=== PATIENT | male | born 1955 | race Caucasian/White ===

== ENCOUNTER 2021-05-16 10:58 | Emergency (ER) | payer OTHER, MEDICARE, BC, SELFPAY ==
[2021-05-16 12:00] VITALS: BP 172/82; PULSE 68; RESP 16; TEMP 36.7; O2SAT 99; BMI 29.9
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
[2021-05-16 14:27] VITALS: BP 172/82; PULSE 68; RESP 16; TEMP 36.7; O2SAT 99
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
== END 2021-05-16 14:39 | disposition home or self-care (01) ==
PROVIDERS: Emergency Provider Nurse Practitioner Family
DX: S16.1XXA Strain of muscle, fascia and tendon at neck level, initial encounter (principal); V43.02XA Car driver injured in collision with other type car in nontraffic accident, initial encounter; Y92.414 Local residential or business street as the place of occurrence of the external cause
CPT/HCPCS: 72050; 73130; 99202; G0463

== ENCOUNTER 2021-05-30 08:57 | Emergency (ER) | payer MEDICARE, BC, SELFPAY ==
[2021-05-30 09:00] VITALS: BP 140/73; PULSE 87; RESP 19; TEMP 36.9; O2SAT 98; BMI 29.9
--- NOTE | 2021-05-30 09:19 | HMH.EDUTC ---
[facility] [place] Disposition Clinical Impression: Sinusitis Qualifiers: Sinusitis location: unspecified location Chronicity: unspecified Qualified Code(s): J32.9 - Chronic sinusitis, unspecified Disposition: Condition on Discharge: Good Instructions: Sinusitis, DI for Sinusitis, Prednisone, DI for COVID-19 (Suspected or Confirmed ) Additional Instructions: *Monitor Temp, Over the counter Motrin or Tylenol as directed/as needed Tylenol every 4 hours and Motrin every 6 hours (as long as your family doctor has told you that you can take it) for fever or pain. and straight to ER if unable to lower temp less than 101.0 after medication given *Warm salt water gargles may help to soothe the throat *Throat Lozenges *Warm fluids like tea with honey may help to soothe the throat *Sleep elevated *Humidifier/Vaporizer Take medication as prescribed Follow up IMMEDIATELY for new or worsening symptoms or no Noticeable improvement over the next 48-72 hours. 911 for difficulty breathing or swallowing You were tested for today for COVID19 your test result should be back in the next 24-48 hours, you may check your results on the [facility] My health portal if you have trouble logging on or seeing your results you may call You was given a handout with instructions for Self Quarantine and Self isolation for while you wait on test results and what to do if they are positive If you are positive the Health Dept will be contacting you also Make sure to take your Vitamins Vit. C Vit D and Zinc if you can take them Prescriptions: Amoxicillin/Potassium Clav [Augmentin 875-125 Tablet] 1 tab PO Q12H 7 Days #14 tab Transmission Status: Pending to [facility] Benzonatate [Benzonatate 100mg cap] 100 mg PO TID PRN #30 cap PRN Reason: Cough Transmission Status: Pending to [facility] predniSONE [Prednisone 20mg Tab] 20 mg PO BID 5 Days #10 tab Transmission Status: Pending to [facility] Referrals: Provider,Referral, [Primary Care Provider] - As needed Time of Disposition: 09:28 Medical Decision Making - Florencio Inquiry Pt receiving controlled substance: No Florencio was queried for this patient: No Vital Signs: 05/30/21 09:00 Temperature 98.5 F Temperature Source Oral Pulse Rate [Right Brachial] 87 Respiratory Rate 19 Blood Pressure [Right Arm] 140/73 Blood Pressure Mean [Right Arm] 95 Blood Pressure Source [Right Arm] Automatic Cuff Blood Pressure Position [Right Arm] Sitting 02 Sat by Pulse Oximetry 98 Oxygen Delivery Method Room Air [facility] [place] HPI - General Stated complaint: sore throat, cough, runny nose Time Seen by Provider: 05/30/21 09:19 Mode of Arrival: Ambulatory Source of Information: Patient, Parent(s) Limitations: No Limitations Description of Symptoms (Recalled from Triage Doc. by RN): PATIENT C/O HEAD AND CHEST CONGESTION AND COUGH X 5 DAYS HEENT Symptoms (Recalled from RN notes): Yes Resp Symptoms (Recalled from RN notes): Yes Skin Symptoms (Recalled from RN notes): No MS Symptoms (Recalled from RN notes): No Functional Status (Recalled from RN notes): WNL - History of Present Illness Provider Complaint: Patient states that he has been having sinus issues for over a week States that for the last 5 days it has got worse States that he feels like it is trying to move into his chest area States that he was wanting to get checked and he will be going to see a new baby on and wanted to get tested for COVID too to make sure he doesnt have anything to be around the baby - Related Data Previous Rx's Medication Instructions Recorded Amoxicillin/Potassium Clav 1 tab PO Q12H 7 Days #14 tab 05/30/21 [Augmentin 875-125 Tablet] Benzonatate [Benzonatate 100mg 100 mg PO TID PRN #30 cap 05/30/21 cap] predniSONE [Prednisone 20mg 20 mg PO BID 5 Days #10 tab 05/30/21 Tab] Allergies Allergy/AdvReac Type Severity Reaction Status Date / Time codeine Allergy Verified 05/30/21
[2021-05-30 09:33] VITALS: BP 140/73; PULSE 87; RESP 19; TEMP 36.9; O2SAT 98
== END 2021-05-30 09:38 | disposition home or self-care (01) ==
PROVIDERS: Emergency Provider Nurse Practitioner
DX: J32.9 Chronic sinusitis, unspecified (principal); Z20.822 Contact with and (suspected) exposure to COVID-19
CPT/HCPCS: G0463; 99202; C9803; U0003; U0005

== ENCOUNTER 2021-06-06 09:03 | Emergency (ER) | payer MEDICARE, BC, SELFPAY ==
[2021-06-06 09:25] VITALS: BP 103/82; PULSE 75; RESP 14; TEMP 36.5; O2SAT 96; BMI 29.9
--- NOTE | 2021-06-06 09:32 | HMH.EDUTC ---
[facility] [place] Disposition Clinical Impression: Sinusitis Qualifiers: Sinusitis location: unspecified location Chronicity: unspecified Qualified Code(s): J32.9 - Chronic sinusitis, unspecified Disposition: Home, Self-Care Condition on Discharge: Good Instructions: Sinusitis, DI for Sinusitis, Azithromycin Additional Instructions: *Monitor Temp, Over the counter Motrin or Tylenol as directed/as needed Tylenol every 4 hours and Motrin every 6 hours (as long as your family doctor has told you that you can take it) for fever or pain. and straight to ER if unable to lower temp less than 101.0 after medication given *Warm salt water gargles may help to soothe the throat *Throat Lozenges *Warm fluids like tea with honey may help to soothe the throat *Sleep elevated *Humidifier/Vaporizer *Flonase 2 sprays in each nostril daily but be aware that it may take 2-3 days before you notice improvement Take medication as prescribed Follow up IMMEDIATELY for new or worsening symptoms or no Noticeable improvement over the next 48-72 hours. 911 for difficulty breathing or swallowing Prescriptions: Fluticasone Propionate [Flonase 50mcg nasal spray 16gm] 1 spr NS DAILY #1 each Transmission Status: Received by [facility] guaiFENesin [Mucinex 600mg tablet] 1 - 2 tab PO Q12H #20 tab Transmission Status: Received by [facility] Azithromycin [Z-Gómez 250mg Tab] 250 mg PO DIRECTED #6 tab Transmission Status: Received by [facility] Referrals: Araseli Li [Primary Care Provider] - As needed Time of Disposition: 10:04 Medical Decision Making - Florencio Inquiry Pt receiving controlled substance: No Florencio was queried for this patient: No Vital Signs: 06/06/21 09:25 06/06/21 10:26 Temperature 97.7 F 97.7 F Temperature Source Oral Pulse Rate 75 Pulse Rate [Left] 75 Respiratory Rate 14 14 Blood Pressure 103/82 L Blood Pressure [Right Arm] 103/82 L Blood Pressure Mean [Right Arm] 89 02 Sat by Pulse Oximetry 96 Orders (Tests/Meds): ED MEDICATIONS Discontinued Medications Generic Name Dose Route Start Last Admin Trade Name Freq PRN Reason Stop Dose Admin Ceftriaxone Sodium 1 gm 06/06/21 09:42 06/06/21 10:05 Ceftriaxone 1gm Vial IM 06/06/21 09:43 1 gm ONCE ONE Administration Lidocaine HCl 0 ml 06/06/21 09:42 06/06/21 10:05 Lidocaine 1% 5ml Pf Vial IM 06/06/21 09:43 2.5 ml ONCE ONE Administration [facility] [place] HPI - General Stated complaint: cough Time Seen by Provider: 06/06/21 09:32 Mode of Arrival: Ambulatory Source of Information: Patient Limitations: No Limitations Description of Symptoms (Recalled from Triage Doc. by RN): pt c/o sinus congestion with clear mucous. pt was seen here 05/30 and dx with a sinus infection. pt was put on augmentin. pt states it helped some but he is still feeling bad. HEENT Symptoms (Recalled from RN notes): Yes (sinus congestion and clear drainage) Resp Symptoms (Recalled from RN notes): No Skin Symptoms (Recalled from RN notes): No MS Symptoms (Recalled from RN notes): No Functional Status (Recalled from RN notes): na - History of Present Illness Provider Complaint: Patient states that he has been having sinus problems for several weeks States that he started out with clear mucous about 3-4 weeks ago with cough, then pressure in his sinuses got worse and he came in State that he has been on Augmentin and it was clearing them up but now the pressure is back and feels like it is moving into his chest - Related Data Previous Rx's Medication Instructions Recorded Amoxicillin/Potassium Clav 1 tab PO Q12H 7 Days #14 tab 05/30/21 [Augmentin 875-125 Tablet] Benzonatate [Benzonatate 100mg 100 mg PO TID PRN #30 cap 05/30/21 cap] predniSONE [Prednisone 20mg 20 mg PO BID 5 Days #10 tab 05/30/21 Tab] Azithromycin [Z-Gómez 250mg Tab] 250 mg PO DIRECTED #6 tab 06/06/21 Fluticasone Propionate [Flonase 1 spr NS DAILY #1 each 1
[2021-06-06 10:26] VITALS: BP 103/82; PULSE 75; RESP 14; TEMP 36.5
== END 2021-06-06 10:27 | disposition home or self-care (01) ==
PROVIDERS: Emergency Provider Nurse Practitioner; PCP Internal Medicine
DX: J32.9 Chronic sinusitis, unspecified (principal); J02.9 Acute pharyngitis, unspecified
CPT/HCPCS: G0463; 99202

== ENCOUNTER 2021-10-12 09:05 | Emergency (ER) | payer MEDICARE, BC, SELFPAY ==
[2021-10-12 09:25] VITALS: BP 175/76; PULSE 73; RESP 16; TEMP 36.8; O2SAT 98; BMI 29.9
--- NOTE | 2021-10-12 09:37 | HMH.EDUTC ---
[facility] [place] Impression: Sinusitis Qualifiers: Sinusitis location: unspecified location Chronicity: unspecified Qualified Code(s): J32.9 - Chronic sinusitis, unspecified Disposition: Home, Self-Care Condition on Discharge: Good Instructions: Sinusitis, DI for Sinusitis Additional Instructions: *Monitor Temp, Over the counter Motrin or Tylenol as directed/as needed Tylenol every 4 hours and Motrin every 6 hours (as long as your family doctor has told you that you can take it) for fever or pain. and straight to ER if unable to lower temp less than 101.0 after medication given *Warm salt water gargles may help to soothe the throat *Throat Lozenges *Warm fluids like tea with honey may help to soothe the throat *Sleep elevated *Humidifier/Vaporizer Take medication as prescribed Follow up Follow up IMMEDIATELY for new or worsening symptoms or no Noticeable improvement over the next 48-72 hours. 911 for difficulty breathing or swallowing Prescriptions: Benzonatate [Benzonatate 100mg cap] 100 mg PO Q8HP PRN #30 cap PRN Reason: Cough Transmission Status: Received by [facility] predniSONE [Prednisone 20mg Tab] 20 mg PO BID #10 tab Transmission Status: Received by [facility] Azithromycin [Z-Gómez 250mg Tab] 250 mg PO DIRECTED #6 tab Transmission Status: Received by [facility] Referrals: Provider,Referral, [Primary Care Provider] - As needed Time of Disposition: 09:55 Medical Decision Making - Florencio Inquiry Pt receiving controlled substance: No Florencio was queried for this patient: No Vital Signs: 10/12/21 09:25 10/12/21 09:59 Temperature 98.2 F 98.2 F Temperature Source Oral Pulse Rate 73 Pulse Rate [Left] 73 Respiratory Rate 16 16 Blood Pressure 175/76 H Blood Pressure [Right Arm] 175/76 H Blood Pressure Mean [Right Arm] 109 02 Sat by Pulse Oximetry 98 Medical Decision Narrative: Discussed with patient about medications on his external medications and patient reports those are not his medications will contact pharmacy to see what can be done to get them removed [facility] [place] - General Stated complaint: congestion, sore throat, cough Time Seen by Provider: 03/23/22 09:37 Mode of Arrival: Ambulatory Source of Information: Patient Limitations: No Limitations Description of Symptoms (Recalled from Triage Doc. by RN): pt c/o sinus pressure, yellow nasal drainage and a nonproductive cough x2 wks. HEENT Symptoms (Recalled from RN notes): Yes Resp Symptoms (Recalled from RN notes): No Skin Symptoms (Recalled from RN notes): No MS Symptoms (Recalled from RN notes): No Functional Status (Recalled from RN notes): wnl - History of Present Illness Provider Complaint: Patient states that he has been having sinus pain and pressure along with cough for about 2 weeks States that it has continued to get worse and he has tried OTC medication - Related Data Previous Rx's Medication Instructions Recorded Amoxicillin/Potassium Clav 1 tab PO Q12H 7 Days #14 tab 05/30/21 [Augmentin 875-125 Tablet] Benzonatate [Benzonatate 100mg 100 mg PO TID PRN #30 cap 05/30/21 cap] predniSONE [Prednisone 20mg 20 mg PO BID 5 Days #10 tab 05/30/21 Tab] Azithromycin [Z-Gómez 250mg Tab] 250 mg PO DIRECTED #6 tab 06/06/21 Fluticasone Propionate [Flonase 1 spr NS DAILY #1 each 06/06/21 50mcg nasal spray 16gm] guaiFENesin [Mucinex 600mg tablet] 1 - 2 tab PO Q12H #20 tab 06/06/21 Azithromycin [Z-Gómez 250mg Tab] 250 mg PO DIRECTED #6 tab 10/12/21 Benzonatate [Benzonatate 100mg 100 mg PO Q8HP PRN #30 cap 10/12/21 cap] predniSONE [Prednisone 20mg 20 mg PO BID #10 tab 10/12/21 Tab] Allergies Allergy/AdvReac Type Severity Reaction Status Date / Time codeine Allergy Verified 05/30/21 09:19 - Worker's Comp Is this a Worker's Comp case?: No [facility] History - Hepatitis A Screen Drug use history?: No High risk sexual behaviors
[2021-10-12 09:59] VITALS: BP 175/76; PULSE 73; RESP 16; TEMP 36.8
== END 2021-10-12 10:05 | disposition home or self-care (01) ==
PROVIDERS: Emergency Provider Nurse Practitioner
DX: J32.9 Chronic sinusitis, unspecified (principal)
CPT/HCPCS: G0463; 99212

== ENCOUNTER 2021-10-18 08:59 | Emergency (ER) | payer MEDICARE, BC, SELFPAY ==
[2021-10-18 09:14] VITALS: BP 141/91; PULSE 85; RESP 17; TEMP 36.8; O2SAT 97; BMI 29.9
--- NOTE | 2021-10-18 09:22 | HMH.EDUTC ---
[facility] [place] Disposition Clinical Impression: Sinusitis Qualifiers: Sinusitis location: unspecified location Chronicity: unspecified Qualified Code(s): J32.9 - Chronic sinusitis, unspecified Disposition: Home, Self-Care Condition on Discharge: Good Instructions: Sinusitis, DI for Sinusitis, Doxycycline Additional Instructions: Take medication as prescribed Follow up with your Family Doctor if no improvement or any worsening of symptoms Make sure to drink plenty of water with this medication Return if needed Straight to ER if any life threatening symptoms Prescriptions: Doxycycline Monohydrate [Doxycycline [place] 100mg Tab] 100 mg PO BID 10 Days #20 tab Transmission Status: Received by [facility] Fluticasone Propionate [Flonase 50mcg nasal spray 16gm] 1 spr NS DAILY #1 each Transmission Status: Received by [facility] guaiFENesin [Mucinex 600mg tablet] 1 tab PO Q12 PRN #20 tab PRN Reason: Congestion Transmission Status: Received by [facility] Referrals: Provider,Referral, MD [Primary Care Provider] - As needed Time of Disposition: 09:31 Medical Decision Making - Florencio Inquiry Pt receiving controlled substance: No Florencio was queried for this patient: No Vital Signs: 10/18/21 09:14 10/18/21 09:38 Temperature 98.2 F 98.2 F Temperature Source Oral Pulse Rate 85 Pulse Rate [Left] 85 Respiratory Rate 17 17 Blood Pressure 141/91 H Blood Pressure [Right Arm] 141/91 H Blood Pressure Mean [Right Arm] 107 02 Sat by Pulse Oximetry 97 Orders (Tests/Meds): ED MEDICATIONS Discontinued Medications Generic Name Dose Route Start Last Admin Trade Name Freq PRN Reason Stop Dose Admin Ceftriaxone Sodium 1 gm 10/18/21 09:22 10/18/21 09:35 Ceftriaxone 1gm Vial IM 10/18/21 09:23 1 gm ONCE ONE Administration Lidocaine HCl 0 ml 10/18/21 09:22 10/18/21 09:35 Lidocaine 1% 5ml Pf Vial IM 10/18/21 09:23 2 ml ONCE ONE Administration [facility] [place] HPI - General Stated complaint: congestion Time Seen by Provider: 10/18/21 09:22 Mode of Arrival: Ambulatory Source of Information: Patient Limitations: No Limitations Description of Symptoms (Recalled from Triage Doc. by RN): pt c/o sinus congestion. pt was treated 1wk ago for a sinus infection and is not feeling any better. HEENT Symptoms (Recalled from RN notes): Yes Resp Symptoms (Recalled from RN notes): No Skin Symptoms (Recalled from RN notes): No MS Symptoms (Recalled from RN notes): No Functional Status (Recalled from RN notes): wnl - History of Present Illness Provider Complaint: Patient states that he started with sinus infection about a week or so ago and he was on a zpack and doesnt feel like it is any better State that he is having pressure behind his eyes and thick yellowish green mucous States that today he came back in because last time he had to get a shot and change meds to help clear it up - Related Data Previous Rx's Medication Instructions Recorded Amoxicillin/Potassium Clav 1 tab PO Q12H 7 Days #14 tab 05/30/21 [Augmentin 875-125 Tablet] Benzonatate [Benzonatate 100mg 100 mg PO TID PRN #30 cap 05/30/21 cap] predniSONE [Prednisone 20mg 20 mg PO BID 5 Days #10 tab 05/30/21 Tab] Azithromycin [Z-Gómez 250mg Tab] 250 mg PO DIRECTED #6 tab 06/06/21 Fluticasone Propionate [Flonase 1 spr NS DAILY #1 each 06/06/21 50mcg nasal spray 16gm] guaiFENesin [Mucinex 600mg tablet] 1 - 2 tab PO Q12H #20 tab 06/06/21 Azithromycin [Z-Gómez 250mg Tab] 250 mg PO DIRECTED #6 tab 10/12/21 Benzonatate [Benzonatate 100mg 100 mg PO Q8HP PRN #30 cap 10/12/21 cap] predniSONE [Prednisone 20mg 20 mg PO BID #10 tab 10/12/21 Tab] Doxycycline Monohydrate 100 mg PO BID 10 Days #20 tab 10/18/21 [Doxycycline Lagrange 100mg Tab] Fluticasone Propionate [Flonase 1 spr NS DAILY #1 each 10/18/21 50mcg nasal spray 16gm] guaiFENesin [Mucinex 600mg tablet] 1 tab PO Q12 PRN #20 tab 10/18/21
[2021-10-18 09:38] VITALS: BP 141/91; PULSE 85; RESP 17; TEMP 36.8
== END 2021-10-18 09:42 | disposition home or self-care (01) ==
PROVIDERS: Emergency Provider Nurse Practitioner
DX: J32.9 Chronic sinusitis, unspecified (principal)
CPT/HCPCS: 96372; 99213; G0463; J0696

== ENCOUNTER 2022-07-05 07:59 | Emergency (ER) | payer MEDICARE, BC, SELFPAY ==
--- NOTE | 2022-07-05 08:38 | EXP.UTC ---
Discharge Plan Disposition Patient Disposition: Home, Self-Care Condition: Good Prescriptions Prescriptions: No Action prednisone 20 MG tablet 20 mg PO BID 5 Days Qty: 10 0RF benzonatate 100 MG capsule 100 mg PO TID PRN (Reason: Cough) Qty: 30 0RF amoxicillin-pot clavulanate 1 EACH tablet 1 tab PO Q12H 7 Days Qty: 14 0RF azithromycin 250 MG tablet 250 mg PO DIRECTED Qty: 6 0RF Rx Instructions: Take two (2) tablets on day #1, then one (1) tablet day #2 thru #5 fluticasone propionate 120 SPR/BOT bottle 1 spr NS DAILY Qty: 1 0RF Rx Instructions: one spray each nostril daily guaifenesin 600 MG tablet extended release 12hr 1 - 2 tab PO Q12H Qty: 20 0RF azithromycin 250 MG tablet 250 mg PO DIRECTED Qty: 6 0RF Rx Instructions: Take two (2) tablets on day #1, then one (1) tablet day #2 thru #5 prednisone 20 MG tablet 20 mg PO BID Qty: 10 0RF benzonatate 100 MG capsule 100 mg PO Q8HP PRN (Reason: Cough) Qty: 30 0RF doxycycline monohydrate 100 MG tablet 100 mg PO BID 10 Days Qty: 20 0RF fluticasone propionate 120 SPR/BOT bottle 1 spr NS DAILY Qty: 1 0RF Rx Instructions: one spray in each nostril daily guaifenesin 600 MG tablet extended release 12hr 1 tab PO Q12 PRN (Reason: Congestion) Qty: 20 0RF Referrals Follow up/Referrals: Araseli Li [Primary Care Provider] - See instructions Activity Restrictions/Add. Instructions Additional Instructions/Restrictions: Drink plenty of fluids. Take tylenol or ibuprofen for pain or fever. Take the medications as directed. Follow up with your regular doctor. GO TO THE ER FOR ANY WORSENING SYMPTOMS Clinical Impressions Clinical Impression: Sinusitis Instructions Patient Instructions: DI for Sinusitis, Sinusitis, Dexamethasone Injection, Ceftriaxone Injection Discharge ED Provider: Laron Matute [facility] General Stated complaint: chest congestion, runny nose Time Seen by Provider: 07/05/22 08:38 History of Present Illness Provider Complaint: He states that for the past 2 weeks he has had sinus and chest congestion. Related Data Previous Rx's Medication Instructions Recorded amoxicillin 875 mg-potassium 1 tab PO Q12H 7 days #14 tabs 05/30/21 clavulanate 125 mg tablet benzonatate 100 mg capsule 100 mg PO TID PRN Cough #30 caps 05/30/21 prednisone 20 mg tablet 20 mg PO BID 5 days #10 tabs 05/30/21 azithromycin 250 mg tablet 250 mg PO DIRECTED #6 tabs 06/06/21 fluticasone propionate 50 1 spr NS DAILY #1 ea 06/06/21 mcg/actuation nasal spray,suspension guaifenesin 600 mg tablet, 1 - 2 tab PO Q12H Congestion/chest 06/06/21 extended release 12 hr congesti #20 tabs azithromycin 250 mg tablet 250 mg PO DIRECTED #6 tabs 10/12/21 benzonatate 100 mg capsule 100 mg PO Q8HP PRN Cough #30 caps 10/12/21 prednisone 20 mg tablet 20 mg PO BID #10 tabs 10/12/21 doxycycline monohydrate 100 mg 100 mg PO BID 10 days #20 tabs 10/18/21 tablet fluticasone propionate 50 1 spr NS DAILY #1 ea 10/18/21 mcg/actuation nasal spray,suspension guaifenesin 600 mg tablet, 1 tab PO Q12 PRN Congestion #20 10/18/21 extended release 12 hr tabs Allergies Allergy/AdvReac Type Severity Reaction Status Date / Time codeine Allergy Verified 07/05/22 08:51 [facility] Disclaimer: The information contained in this section may have been updated after the patient was seen, as this information can be updated by other users. Social History Smoking Status: Former smoker alcohol intake: never current occupational status: other Travel in the last 8 weeks: None ROS Obtained: Yes All systems reviewed & no additional complaints except as documented Constitutional Constitutional: Denies chills and Denies fever(s) Integumentary/Breasts Skin/Breast: Denies redness, Denies rash and Denies wounds Neurologic Neurologic: Ovidio
[2022-07-05 08:48] VITALS: BP 127/76; PULSE 73; RESP 17; TEMP 37.1; O2SAT 99; BMI 26.6
[2022-07-05 09:27] VITALS: BP 127/76; PULSE 73; RESP 17; TEMP 37.1
== END 2022-07-05 09:32 | disposition home or self-care (01) ==
PROVIDERS: Emergency Provider Nurse Practitioner Family; PCP Internal Medicine
DX: J32.9 Chronic sinusitis, unspecified (principal)
CPT/HCPCS: 96372; 99212; G0463; J0696

== ENCOUNTER 2022-07-18 07:59 | Emergency (ER) | payer MEDICARE, BC, SELFPAY ==
[2022-07-18 08:20] VITALS: BP 158/96; PULSE 73; RESP 16; TEMP 36.8; O2SAT 97; BMI 29.9
--- NOTE | 2022-07-18 08:37 | EXP.UTC ---
Discharge Plan Disposition Patient Disposition: Home, Self-Care Condition: Good Prescriptions Prescriptions: New amoxicillin-pot clavulanate 875-125 mg Tablet 1 tab PO Q12H Qty: 20 0RF benzonatate [benzonatate] 100 mg capsule 100 mg PO TIDP PRN (Reason: Cough) Qty: 30 0RF methylprednisolone 4 mg Tablets,Dose Pack 4 mg PO DIRECTED Qty: 21 0RF No Action prednisone 20 MG tablet 20 mg PO BID 5 Days Qty: 10 0RF benzonatate 100 MG capsule 100 mg PO TID PRN (Reason: Cough) Qty: 30 0RF amoxicillin-pot clavulanate 1 EACH tablet 1 tab PO Q12H 7 Days Qty: 14 0RF azithromycin 250 MG tablet 250 mg PO DIRECTED Qty: 6 0RF Rx Instructions: Take two (2) tablets on day #1, then one (1) tablet day #2 thru #5 fluticasone propionate 120 SPR/BOT bottle 1 spr NS DAILY Qty: 1 0RF Rx Instructions: one spray each nostril daily guaifenesin 600 MG tablet extended release 12hr 1 - 2 tab PO Q12H Qty: 20 0RF azithromycin 250 MG tablet 250 mg PO DIRECTED Qty: 6 0RF Rx Instructions: Take two (2) tablets on day #1, then one (1) tablet day #2 thru #5 prednisone 20 MG tablet 20 mg PO BID Qty: 10 0RF benzonatate 100 MG capsule 100 mg PO Q8HP PRN (Reason: Cough) Qty: 30 0RF doxycycline monohydrate 100 MG tablet 100 mg PO BID 10 Days Qty: 20 0RF fluticasone propionate 120 SPR/BOT bottle 1 spr NS DAILY Qty: 1 0RF Rx Instructions: one spray in each nostril daily guaifenesin 600 MG tablet extended release 12hr 1 tab PO Q12 PRN (Reason: Congestion) Qty: 20 0RF Referrals Follow up/Referrals: Araseli Li [Primary Care Provider] - See instructions Activity Restrictions/Add. Instructions Additional Instructions/Restrictions: Drink plenty of fluids. Take tylenol or ibuprofen for pain or fever. Take the medications as directed. Follow up with your regular doctor. GO TO THE ER FOR ANY WORSENING SYMPTOMS Don't start the oral steroids until tomorrow, since you had the shot here today. Clinical Impressions Clinical Impression: Sinusitis Instructions Patient Instructions: Sinusitis, DI for Sinusitis Discharge ED Provider: Laron Matute [facility] General Stated complaint: Congestion, drainage, cough Mode of Arrival: Ambulatory Source of Information: Patient Limitations: No Limitations Time Seen by Provider: 07/18/22 08:37 Description of Symptoms (Recalled from Triage Doc. by RN): pt comes in with c/o chest congestion and sinus congestion. symptoms ongoing for 2 weeks. pt was seen here previously but is still having symptoms HEENT Symptoms (Recalled from RN notes): Yes Resp Symptoms (Recalled from RN notes): Yes Skin Symptoms (Recalled from RN notes): No MS Symptoms (Recalled from RN notes): No Functional Status (Recalled from RN notes): n/a History of Present Illness Provider Complaint: He states that he has been having congestion and feeling bad for the past 2 weeks. He was seen here when his symptoms began. He states that he got a little better but when the medication ended his symptoms came back. Related Data Previous Rx's Medication Instructions Recorded amoxicillin 875 mg-potassium 1 tab PO Q12H 7 days #14 tabs 05/30/21 clavulanate 125 mg tablet benzonatate 100 mg capsule 100 mg PO TID PRN Cough #30 caps 05/30/21 prednisone 20 mg tablet 20 mg PO BID 5 days #10 tabs 05/30/21 azithromycin 250 mg tablet 250 mg PO DIRECTED #6 tabs 06/06/21 fluticasone propionate 50 1 spr NS DAILY #1 ea 06/06/21 mcg/actuation nasal spray,suspension guaifenesin 600 mg tablet, 1 - 2 tab PO Q12H Congestion/chest 06/06/21 extended release 12 hr congesti #20 tabs azithromycin 250 mg tablet 250 mg PO DIRECTED #6 tabs 10/12/21 benzonatate 100 mg capsule 100 mg PO Q8HP PRN Cough #30 caps 10/12/21 prednisone 20 mg tablet 20 mg PO BID #10 tabs 10/12/21 doxycycline monohydrate 100 mg 100 mg PO BID 10 days #20 tabs 10/18/21 table
[2022-07-18 09:04] VITALS: BP 158/96; PULSE 73; RESP 16; TEMP 36.8
== END 2022-07-18 09:07 | disposition home or self-care (01) ==
PROVIDERS: Emergency Provider Nurse Practitioner Family; PCP Internal Medicine
DX: J32.9 Chronic sinusitis, unspecified (principal)
CPT/HCPCS: 96372; 99212; G0463; J0696

== ENCOUNTER 2023-05-25 08:01 | Emergency (ER) | payer MEDICARE, BC, SELFPAY ==
--- OUTSIDE RECORDS SUMMARY | 2023-05-25 08:06 | XMS_ITS | Continuity of Care Document ---
Author Name Unknown Organization [facility] Address [address] [place] [address] Phone Care Team Providers Care Hand Alterations Tailor Name Role Phone Avinash Aguayo MD Unavailable Unavailable Allergies, Adverse Reactions, Alerts Substance Reaction Status Criticality Sulfa (Sulfonamide Antibiotics) Active No Information Medications Medication Instructions Dosage Effective Dates (start - stop) Status Comments oxycodone 5 mg tablet take 1-2 tablet by oral route every 8 hours as needed - Active Cymbalta 30 mg capsule,delayed release take 1 capsule by oral route BID - Active diclofenac 1 % topical gel apply 2 gram by topical route 4 times every day to the affected area(s) 2.00 gram - Active Flomax 0.4 mg capsule take 1 capsule by oral route every day 1/2 hour following the same meal each day 0.4 MG - Active oxycodone 5 mg tablet take 1 tablet by oral route every 8 hours as needed - No Longer Active Procedures Procedure Date Postop followup visit Postop followup visit
[2023-05-25 08:10] VITALS: BP 138/84; PULSE 68; RESP 18; TEMP 36.7; O2SAT 98; BMI 24.8
--- NOTE | 2023-05-25 08:15 | EXP.UTC ---
Discharge Plan Disposition Patient Disposition: Home, Self-Care Condition: Good Prescriptions Prescriptions: New methylprednisolone 4 mg Tablets,Dose Pack 4 mg PO DIRECTED Qty: 21 0RF guaifenesin [Mucinex] 600 mg tablet extended release 12hr 600 - 1,200 mg PO BIDP PRN (Reason: Congestion) Qty: 30 0RF benzonatate [benzonatate] 100 mg capsule 100 mg PO TIDP PRN (Reason: Cough) Qty: 30 0RF amoxicillin [amoxicillin] 875 mg tablet 875 mg PO Q12H Qty: 20 0RF Referrals Follow up/Referrals: Araseli Li [Primary Care Provider] - See instructions Activity Restrictions/Add. Instructions Additional Instructions/Restrictions: Drink plenty of fluids. Take tylenol or ibuprofen for pain or fever. Take the medications as directed. Follow up with your regular doctor. GO TO THE ER FOR ANY WORSENING SYMPTOMS Don't start the oral steroids until tomorrow, since you had the shot here today. Clinical Impressions Clinical Impression: Sinusitis Instructions Patient Instructions: Sinusitis, DI for Sinusitis, Ceftriaxone Injection, Dexamethasone Injection Discharge ED Provider: Laron Matute [facility] General Stated complaint: chest congestion, cough Time Seen by Provider: 05/25/23 08:15 History of Present Illness Provider Complaint: He states that for the past 2 weeks he has had sinus congestion. He states that his symptoms are worsening. He now has a productive cough with yellowish sputum. Related Data Previous Rx's Medication Instructions Recorded amoxicillin 875 mg tablet 875 mg PO Q12H #20 tabs 05/25/23 benzonatate 100 mg capsule 100 mg PO TIDP PRN Cough #30 caps 05/25/23 guaifenesin 600 mg tablet, 600 - 1,200 mg PO BIDP PRN 05/25/23 extended release 12 hr (Mucinex) Congestion #30 tabs methylprednisolone 4 mg tablets in 4 mg PO DIRECTED #21 tabs 05/25/23 a dose pack Allergies Allergy/AdvReac Type Severity Reaction Status Date / Time codeine Allergy Verified 05/25/23 08:20 [facility] Disclaimer: The information contained in this section may have been updated after the patient was seen, as this information can be updated by other users. Social History Smoking Status: Former smoker alcohol intake: never current occupational status: other Travel in the last 8 weeks: None ROS Obtained: Yes All systems reviewed & no additional complaints except as documented Constitutional Constitutional: Reports poor appetite Eyes Eyes: Reports system reviewed and no additional complaints, except as documented ENT Ears, Nose, Mouth, and Throat: Reports as per HPI Cardiovascular Cardiovascular: Reports system reviewed and no additional complaints, except as documented and Denies chest pain Respiratory Respiratory: Denies shortness of breath, Denies chest congestion, Reports cough, Denies stridor and Denies wheezing Gastrointestinal Gastrointestingal: Reports system reviewed and no additional complaints, except as documented; Denies abdominal pain, diarrhea or vomiting Musculoskeletal Musculoskeletal: Reports system reviewed and no additional complaints, except as documented and Denies arthralgias Integumentary/Breasts Skin/Breast: Reports system reviewed and no additional complaints, except as documented and Denies rash Neurologic Neurologic: Denies paresthesias Allergic/Immunologic Allergic/Immunologic: Denies wheezing Physical Exam General General appearance: alert and in no apparent distress Eye Eye exam: Present normal appearance, PERRL and EOMI ENT ENT exam: Present mucous membranes moist and normal external ear exam Expanded ENT Exam External ear exam: Present normal external inspection TM/Canal exam: Bilateral TM: erythema and bulging Nose exam: Absent sinus tenderness Nasal speculum exam: Bilateral: normal Mouth exam: Present normal external inspection; Absent drooling Teeth exam: Present normal inspection Thro
[2023-05-25 09:16] VITALS: BP 138/84; PULSE 68; RESP 18; TEMP 36.7; O2SAT 98
== END 2023-05-25 09:16 | disposition home or self-care (01) ==
PROVIDERS: Emergency Provider Nurse Practitioner Family; PCP Internal Medicine
DX: J01.90 Acute sinusitis, unspecified (principal); Z87.891 Personal history of nicotine dependence
CPT/HCPCS: 96372; 99212; 99214; G0463; J0696

== ENCOUNTER 2024-03-09 08:04 | Emergency (ER) | payer MEDICARE, BC, SELFPAY ==
[2024-03-09 08:10] VITALS: BP 154/94; PULSE 64; RESP 20; TEMP 36.7; O2SAT 98; BMI 25.9
--- NOTE | 2024-03-09 08:27 | ED_ITS ---
Discharge Plan Disposition Patient Disposition: Home, Self-Care Condition: Good Prescriptions Prescriptions: New benzonatate 100 mg capsule 100 mg PO TID PRN (Reason: cough) Qty: 30 0RF methylprednisolone [Medrol (Gómez)] 4 mg tablets,dose pack See Rx Instructions .Route .COMPLEX 6 Days Qty: 21 0RF Rx Instructions: taper pack; amoxicillin-pot clavulanate 875-125 mg Tablet 1 tab PO Q12H Qty: 20 0RF Referrals Follow up/Referrals: Giancarlo Ramirez [Primary Care Provider] - See instructions Activity Restrictions/Add. Instructions Additional Instructions/Restrictions: *Monitor Temp, Over the counter Motrin or Tylenol as directed/as needed Tylenol every 4 hours and Motrin every 6 hours (as long as your family doctor has told you that you can take it) for fever or pain. and straight to ER if unable to lower temp less than 101.0 after medication given *Warm salt water gargles may help to soothe the throat *Throat Lozenges? *Warm fluids like tea with honey may help to soothe the throat? *Sleep elevated *Humidifier/Vaporizer take medication as prescribed Follow up IMMEDIATELY for new or worsening symptoms or no Noticeable improvement over the next 48-72 hours. 911 for difficulty breathing or swallowing Clinical Impressions Clinical Impression: Sinusitis Instructions Patient Instructions: DI for Sinusitis, Sinusitis Print Language Print Language: Mauritanian Discharge ED Provider: Genia Mueller [facility] [place] [facility] General Stated complaint: sinus pressure, congestion Mode of Arrival: Ambulatory Source of Information: Patient Limitations: No Limitations Time Seen by Provider: 03/09/24 08:28 Description of Symptoms (Recalled from Triage Doc. by RN): PATIENT C/O COUGH AND SINUS/CHEST CONGESTION X 2 WEEKS HEENT Symptoms (Recalled from RN notes): Yes Resp Symptoms (Recalled from RN notes): Yes Skin Symptoms (Recalled from RN notes): No MS Symptoms (Recalled from RN notes): No Functional Status (Recalled from RN notes): WNL History of Present Illness Provider Complaint: Patient states that for the last 2 weeks he has been having sinus pain and pressure that is moving into his chest States that he gets this way about this time every year with sinus infection States he has been fighting it for a couple weeks but nothing was working Related Data Previous Rx's ?Medication ?Instructions ?Recorded amoxicillin 875 mg-potassium 1 tab PO Q12H #20 tabs 03/09/24 clavulanate 125 mg tablet benzonatate 100 mg capsule 100 mg PO TID PRN cough #30 caps 03/09/24 methylprednisolone 4 mg tablets in See Rx Instructions .Route 03/09/24 a dose pack (Medrol (Gómez)) .COMPLEX 6 days #21 tabs Allergies Allergy/AdvReac Type Severity Reaction Status Date / Time codeine Allergy Verified 05/25/23 08:20 Worker's Comp Is this a Worker's Comp case?: No [facility] Disclaimer: The information contained in this section may have been updated after the patient was seen, as this information can be updated by other users. Medical History (Updated 03/09/24 @ 08:39 by Genia Mueller APRN) No significant past medical history Social History Smoking Status: Former smoker alcohol intake: never current occupational status: other Travel in the last 8 weeks: None ROS Obtained: Yes All systems reviewed & no additional complaints except as documented and Yes Systems reviewed as appropriate & no additional complaints except as documented Constitutional Constitutional: Reports system reviewed and no additional complaints, except as documented, Reports as per HPI and Reports headache(s) ENT Ears, Nose, Mouth, and Throat: Reports system reviewed and no additional complaints, except as documented, Reports as per HPI, Reports headache(s), Reports sinus pain and Reports sinus pressure Cardiovascular Cardiovascular: Reports system reviewed and no additional complaints, except as documented and Reports as per HPI Respiratory Respiratory: Reports system reviewed and no additional complaints, except as documented, Reports as per HPI, Reports chest congestion and Reports cough Gastrointestinal Gastrointestingal: Reports system reviewed and no additional complaints, except as documented and as per HPI Neurologic Neurologic: Reports headache(s) Physical Exam General General appearance: alert and in no apparent distress Expanded ENT Exam Nose exam: Present sinus tenderness Throat exam: Present other (PND noted) Respiratory Respiratory exam: Present normal lung sounds bilaterally; Absent respiratory distress or wheezes Cardiovascular Cardiovascular exam: Present regular rate, normal rhythm and normal heart sounds Abdominal Exam Abdominal exam: Present soft and normal bowel sounds; Absent distention or tenderness Neurological Exam Neurological exam: Present alert, oriented X3 and normal gait Medical Decision Making Florencio Inquiry Pt receiving controlled substance: No Florencio was queried for this patient: No Vital Signs: 03/09/24 08:10 Temperature 98.0 F Temperature Source Oral Pulse Rate [Left Brachial] 64 Respiratory Rate 20 Blood Pressure [Left Arm] 154/94 H Blood Pressure Mean [Left Arm] 114 Blood Pressure Source [Left Arm] Automatic Cuff Blood Pressure Position [Left Arm] Sitting 02 Sat by Pulse Oximetry 98 Oxygen Delivery Method Room Air Medical Decision Narrative: Patient has multiple medications listed on his med list however advised that his information is mixed up with another patient with the same name and similar birthday that those are not his medications he doesnt take any medications
[2024-03-09 08:39] VITALS: BP 154/94; PULSE 64; RESP 20; TEMP 36.7; O2SAT 98
[2024-03-09] MEDS: cefTRIAXone 1GM VIAL 1 GM IM (08:50)
[2024-03-09] MEDS: METHYLPREDNISOLONE SOD SUCC 125MG VIAL 125 MG IM (08:50)
[2024-03-09] MEDS: LIDOCAINE 1% 5ML PF VIAL IM (08:50)
== END 2024-03-09 08:58 | disposition home or self-care (01) ==
PROVIDERS: Emergency Provider Nurse Practitioner; PCP Family Medicine
DX: J01.90 Acute sinusitis, unspecified (principal); R09.81 Nasal congestion
CPT/HCPCS: 96372; 99212; 99214; G0463; J0696; J2919

== ENCOUNTER 2024-04-14 08:02 | Emergency (ER) | payer MEDICARE, BC, SELFPAY ==
[2024-04-14 08:21] VITALS: BP 155/74; PULSE 63; RESP 20; TEMP 36.7; O2SAT 98; BMI 26.1
--- NOTE | 2024-04-14 08:29 | EXP.UTC ---
Discharge Plan Disposition Patient Disposition: Home, Self-Care Condition: Good Prescriptions Prescriptions: New benzonatate 100 mg capsule 100 mg PO TID PRN (Reason: cough) Qty: 30 0RF amoxicillin-pot clavulanate 875-125 mg Tablet 1 tab PO Q12H Qty: 20 0RF methylprednisolone [Medrol (Gómez)] 4 mg tablets,dose pack See Rx Instructions .Route .COMPLEX 6 Days Qty: 21 0RF Rx Instructions: taper pack; guaifenesin [Mucinex] 600 mg tablet extended release 12hr 600 - 1,200 mg PO BID PRN (Reason: cough) Qty: 20 0RF fluticasone propionate [Flonase Allergy Relief] 50 mcg/actuation spray,suspension 1 - 2 spray intranasal DAILY Qty: 16 0RF Rx Instructions: administer into each nostril No Action benzonatate 100 mg capsule 100 mg PO TID PRN (Reason: cough) Qty: 30 0RF methylprednisolone [Medrol (Gómez)] 4 mg tablets,dose pack See Rx Instructions .Route .COMPLEX 6 Days Qty: 21 0RF Rx Instructions: taper pack; amoxicillin-pot clavulanate 875-125 mg Tablet 1 tab PO Q12H Qty: 20 0RF Referrals Follow up/Referrals: Araseli Li [Primary Care Provider] - See instructions Activity Restrictions/Add. Instructions Additional Instructions/Restrictions: *Monitor Temp, Over the counter Motrin or Tylenol as directed/as needed Tylenol every 4 hours and Motrin every 6 hours (as long as your family doctor has told you that you can take it) for fever or pain. and straight to ER if unable to lower temp less than 101.0 after medication given *Warm salt water gargles may help to soothe the throat *Throat Lozenges? *Warm fluids like tea with honey may help to soothe the throat? *Sleep elevated *Humidifier/Vaporizer *Flonase 2 sprays in each nostril daily but be aware that it may take 2-3 days before you notice improvement Make sure to drink plenty of fluids Follow up IMMEDIATELY for new or worsening symptoms or no Noticeable improvement over the next 48-72 hours. 911 for difficulty breathing or swallowing Clinical Impressions Clinical Impression: Sinusitis Instructions Patient Instructions: DI for Sinusitis, Sinusitis Print Language Print Language: Latvian Discharge ED Provider[place] Genia [place] [facility] [place] General Stated complaint: sinus drainage, congestion Mode of Arrival: Ambulatory Source of Information: Patient Time Seen by Provider: 04/14/24 08:29 Description of Symptoms (Recalled from Triage Doc. by RN): sinus congestion and chest cold s/s HEENT Symptoms (Recalled from RN notes): Yes Resp Symptoms (Recalled from RN notes): Yes Skin Symptoms (Recalled from RN notes): No MS Symptoms (Recalled from RN notes): No Functional Status (Recalled from RN notes): wnl History of Present Illness Provider Complaint: Patient states that he gets sinusitis and bronchitis several times a year States for the last week he has been having sinus pain and pressure and feels like it is trying to move into his chest area so today when he was still having symptoms he came in to get something for it Related Data Previous Rx's ?Medication ?Instructions ?Recorded amoxicillin 875 mg-potassium 1 tab PO Q12H #20 tabs 03/09/24 clavulanate 125 mg tablet benzonatate 100 mg capsule 100 mg PO TID PRN cough #30 caps 03/09/24 methylprednisolone 4 mg tablets in See Rx Instructions .Route 03/09/24 a dose pack (Medrol (Gómez)) .COMPLEX 6 days #21 tabs amoxicillin 875 mg-potassium 1 tab PO Q12H #20 tabs 04/14/24 clavulanate 125 mg tablet benzonatate 100 mg capsule 100 mg PO TID PRN cough #30 caps 04/14/24 fluticasone propionate 50 1 - 2 spray intranasal DAILY #16 04/14/24 mcg/actuation nasal grams spray,suspension (Flonase Allergy Relief) guaifenesin 600 mg tablet, 600 - 1,200 mg (1 - 2 x 600 mg) PO 04/14/24 extended release 12 hr (Mucinex) BID PRN cough #20 tabs methylprednisolone 4 mg tablets in See Rx Instructions .Route 04/14/24 a dose pack (Medrol (Gómez)) .COMPLEX 6 days #21 tabs Allergies Allergy/AdvReac Type Severity Reaction Status Date / Time codeine Allergy Verified 05/25/23 08:20 Worker's Comp Is this a Worker's Comp case?: No [facility] Disclaimer: The information contained in this section may have been updated after the patient was seen, as this information can be updated by other users. Medical History (Updated 04/14/24 @ 08:36 by Genia Mueller APRN) No significant past medical history Social History Smoking Status: Former smoker alcohol intake: never current occupational status: other Travel in the last 8 weeks: None ROS Obtained: Yes All systems reviewed & no additional complaints except as documented and Yes Systems reviewed as appropriate & no additional complaints except as documented Constitutional Constitutional: Reports system reviewed and no additional complaints, except as documented, Reports as per HPI and Reports headache(s) ENT Ears, Nose, Mouth, and Throat: Reports system reviewed and no additional complaints, except as documented, Reports as per HPI, Reports headache(s), Reports sinus pain and Reports sinus pressure Cardiovascular Cardiovascular: Reports system reviewed and no additional complaints, except as documented and Reports as per HPI Respiratory Respiratory: Reports system reviewed and no additional complaints, except as documented, Reports as per HPI and Reports cough Gastrointestinal Gastrointestingal: Reports system reviewed and no additional complaints, except as documented and as per HPI Neurologic Neurologic: Reports headache(s) Physical Exam General General appearance: alert and in no apparent distress ENT ENT exam: Present mucous membranes moist Expanded ENT Exam Nose exam: Present sinus tenderness Throat exam: Present other (PND noted) Respiratory Respiratory exam: Present normal lung sounds bilaterally; Absent respiratory distress or wheezes Cardiovascular Cardiovascular exam: Present regular rate, normal rhythm and normal heart sounds Neurological Exam Neurological exam: Present alert, oriented X3 and normal gait Medical Decision Making Medical Records Screening: Per USPSTF and CDC recommendations, given the prevalence of disease in our region, it is our hospital?s policy to screen for HIV and viral Hepatitis for all patients aged 18 and over and those with ongoing risk factors. Florencio Inquiry Pt receiving controlled substance: No Florencio was queried for this patient: No Vital Signs: 04/14/24 08:21 Temperature 98.1 F Temperature Source Oral Pulse Rate [Left Brachial] 63 Respiratory Rate 20 Blood Pressure [Left Arm] 155/74 H Blood Pressure Mean [Left Arm] 101 02 Sat by Pulse Oximetry 98 Medical Decision Narrative: Patient states he chaves s taken medrol in the past without complications with his blood sugar
[2024-04-14 08:42] VITALS: BP 155/74; PULSE 63; RESP 20; TEMP 36.7
== END 2024-04-14 08:43 | disposition home or self-care (01) ==
PROVIDERS: Emergency Provider Nurse Practitioner; PCP Internal Medicine
DX: J01.90 Acute sinusitis, unspecified (principal); R09.81 Nasal congestion
CPT/HCPCS: 99212; 99214; G0463

== ENCOUNTER 2024-04-21 08:07 | Emergency (ER) | payer MEDICARE, BC, SELFPAY ==
[2024-04-21 08:55] VITALS: BP 158/77; PULSE 66; RESP 20; TEMP 37; O2SAT 97; BMI 26.6
--- NOTE | 2024-04-21 08:55 | EXP.UTC ---
Discharge Plan Disposition Patient Disposition: Home, Self-Care Condition: Good Prescriptions Prescriptions: New doxycycline hyclate 100 mg capsule 100 mg PO Q12 10 Days Qty: 20 0RF prednisone 10 mg tablet 10 mg PO DIRECTED 6 Days Qty: 14 0RF Rx Instructions: Take 4 tablets daily for 2 days, then take 2 tablets daily for 2 days, then take 1 tablet daily for 2 days, then stop. Probiotic 10 billion cell capsule 10,000 mmu cells PO DAILY 30 Days Qty: 30 0RF Referrals Follow up/Referrals: Araseli Li [Primary Care Provider] - See instructions Activity Restrictions/Add. Instructions Additional Instructions/Restrictions: Drink plenty of fluids. Take tylenol or ibuprofen for pain or fever. Take the medications as directed. Don't start the oral steroids (prednisone) until tomorrow, since you had the steroid shot here today. To protect yourself from the effects of these antibiotic being prescribed back to back, eat yogurt at least a couple times per day while you are on the doxycyline. I also prescribed you a probiotic to try to prevent some of the side effects of taking the antibiotics. Follow up with your regular doctor. GO TO THE ER FOR ANY WORSENING SYMPTOMS Clinical Impressions Clinical Impression: Sinusitis Print Language Print Language: Thai Discharge ED Provider: Laron Matute [facility] [place] General Stated complaint: congestion, head pressure, drainage Time Seen by Provider: 04/21/24 08:55 Related Data Previous Rx's ?Medication ?Instructions ?Recorded Lactobacillus acidophilus 10 10,000 mmu cells PO DAILY 30 days 04/21/24 billion cell capsule (Probiotic) #30 caps doxycycline hyclate 100 mg capsule 100 mg PO Q12 10 days #20 caps 04/21/24 prednisone 10 mg tablet 10 mg PO DIRECTED 6 days #14 04/21/24 tabs Allergies Allergy/AdvReac Type Severity Reaction Status Date / Time codeine Allergy Verified 05/25/23 08:20 [facility] Disclaimer: The information contained in this section may have been updated after the patient was seen, as this information can be updated by other users. Medical History (Updated 04/21/24 @ 09:41 by Elis Rojas RN) No significant past medical history Social History Smoking Status: Former smoker alcohol intake: never current occupational status: other Travel in the last 8 weeks: None ROS Obtained: Yes All systems reviewed & no additional complaints except as documented Constitutional Constitutional: Reports poor appetite Eyes Eyes: Reports system reviewed and no additional complaints, except as documented ENT Ears, Nose, Mouth, and Throat: Reports as per HPI Cardiovascular Cardiovascular: Reports system reviewed and no additional complaints, except as documented and Denies chest pain Respiratory Respiratory: Denies shortness of breath, Denies chest congestion, Reports cough, Denies stridor and Denies wheezing Gastrointestinal Gastrointestingal: Reports system reviewed and no additional complaints, except as documented; Denies abdominal pain, diarrhea or vomiting Musculoskeletal Musculoskeletal: Reports system reviewed and no additional complaints, except as documented and Denies arthralgias Integumentary/Breasts Skin/Breast: Reports system reviewed and no additional complaints, except as documented and Denies rash Neurologic Neurologic: Denies paresthesias Allergic/Immunologic Allergic/Immunologic: Denies wheezing Physical Exam General General appearance: alert and in no apparent distress Eye Eye exam: Present normal appearance, PERRL and EOMI ENT ENT exam: Present mucous membranes moist and normal external ear exam Expanded ENT Exam External ear exam: Present normal external inspection TM/Canal exam: Bilateral TM: erythema and bulging Nose exam: Absent sinus tenderness Nasal speculum exam: Bilateral: normal Mouth exam: Present normal external inspection; Absent drooling Teeth exam: Present normal inspection Throat exam: Present tonsillar erythema and tonsillomegaly Neck Neck exam: Present normal inspection, full ROM and trachea midline; Absent tenderness, lymphadenopathy or thyromegaly Chest Chest inspection: Present normal inspection and symmetric chest wall rise; Absent tenderness or rash Respiratory Respiratory exam: Present normal lung sounds bilaterally; Absent respiratory distress, wheezes, stridor or accessory muscle use Cardiovascular Cardiovascular exam: Present regular rate, normal rhythm and normal heart sounds Abdominal Exam Abdominal exam: Present soft; Absent distention, tenderness, guarding, rebound or rigidity Extremities Exam Extremities exam: Present normal inspection, full ROM and normal capillary refill; Absent tenderness or calf tenderness Back Exam Back exam: Present normal inspection and full ROM; Absent tenderness Neurological Exam Neurological exam: Present alert and oriented X3 Psychiatric Psychiatric exam: Present normal affect and normal mood Skin Skin exam: Present warm, dry, intact and normal color Lymphatic Lymphatic Findings: no adenopathy Medical Decision Making Medical Records Medical records reviewed: No I reviewed the patient's medical records. Screening: Per USPSTF and CDC recommendations, given the prevalence of disease in our region, it is our hospital?s policy to screen for HIV and viral Hepatitis for all patients aged 18 and over and those with ongoing risk factors. Florencio Inquiry Pt receiving controlled substance: No Lab Data Lab results reviewed: Yes I reviewed the patient's lab results.
[2024-04-21] MEDS: DEXAMETHASONE 4MG/ML 1ML VIAL 8 MG IM (09:14)
[2024-04-21 09:36] VITALS: BP 158/77; PULSE 66; RESP 20; TEMP 37; O2SAT 97
== END 2024-04-21 09:41 | disposition home or self-care (01) ==
PROVIDERS: Emergency Provider Nurse Practitioner Family; PCP Internal Medicine
DX: J01.90 Acute sinusitis, unspecified (principal); R09.82 Postnasal drip; R09.81 Nasal congestion
CPT/HCPCS: 96372; 99212; 99214; G0463; J1100